=== PATIENT | female | born 2000 | race Caucasian/White ===

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

== ENCOUNTER 2019-05-28 09:42 | Emergency (ER) | payer MEDICAID ==
[2019-05-28] MEDS ORDERED: ONDANSETRON ODT 4 MG TABLET TL STA (10:14)
--- NOTE | 2019-05-28 11:27 | ED Physician Documentation ---
PD HPI NVD - Stated complaint Stated Complaint: VOMITING - Chief complaint Chief Complaint: Abd Pain - History obtained from History obtained from: Patient - History of Present Illness Timing - onset: Today Similar symptoms before: Has not had sx before - Additonal information Additional information: The patient is a 19-year-old female who presents with vomiting and diarrhea that started this morning. She denies abdominal pain, fever, or dysuria. She denies headache, sore throat, cough, or lightheadedness. Her [id number] daughter has also been vomiting this morning. Review of Systems Constitutional: denies: Fever Ears: denies: Tinnitus/ringing Nose: denies: Congestion Throat: denies: Sore throat Cardiac: denies: Chest pain / pressure Respiratory: denies: Dyspnea, Cough GI: reports: Vomiting, Diarrhea. 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 : None HEENT: None Psych: None Musculoskeletal: None - Past Surgical History Past Surgical History: No - Present Medications Home Medications: Ambulatory Orders Medication Instructions Recorded Confirmed Pnv95/Ferrous Fumarate/FA 1 tab ORAL DAILY 07/24/18 07/24/18 [ Tablet] Promethazine [Phenergan] 25 - 50 mg PO Q6H PRN #10 tab 05/28/19 - Allergies Allergies/Adverse Reactions: Allergies Allergy/AdvReac Type Severity Reaction Status Date / Time No Known Drug Allergies Allergy Verified 05/28/19 09:49 - Social History Does the pt smoke?: No Smoking Status: Never smoker Does the pt drink ETOH?: No Does the pt have substance abuse?: No - Immunizations Immunizations are current?: Yes PD ED PE NORMAL - Vitals Vital signs reviewed: Yes (Initially tachycardic.) - General General: Alert and oriented X 3, Well developed/nourished - HEENT HEENT: Atraumatic, EOMI, Moist mucous membranes, Pharynx benign - Neck Neck: Supple, no meningeal sign, No adenopathy - Cardiac Cardiac: No murmur, Other (Rapid rate, regular rhythm.) - Respiratory Respiratory: No respiratory distress, Clear bilaterally - Abdomen Abdomen: Soft, Non tender - Back Back: No CVA TTP - Derm Derm: No rash - Extremities Extremities: No edema, No calf tenderness / cord - Neuro Neuro: Alert and oriented X 3, No motor deficit, Normal speech Results - Vitals Vitals: Oxygen O2 Source Room air PD MEDICAL DECISION MAKING - ED course Complexity details: re-evaluated patient, considered differential, d/w patient ED course: The patient's presentation is most consistent with gastroenteritis, with symptoms of vomiting and diarrhea. Her abdominal exam is benign. Treatment in the emergency department included administration of Zofran 4 mg orally. She had no vomiting while in the emergency department, and demonstrated ability to drink fluids without recurrent nausea. She is being discharged with a prescription for Phenergan. I discussed with her the expected course of illness, symptomatic treatment and outpatient follow-up, as well as potentially worrisome signs or symptoms that should prompt reevaluation in the emergency department. Departure - Departure Disposition: 01 Home, Self Care Clinical Impression: Gastroenteritis Vomiting Qualifiers: Vomiting type: unspecified Vomiting Intractability: non-intractable Nausea presence: with nausea Qualified Code(s): R11.2 - Nausea with vomiting, unspecified Condition: Stable Instructions: ED Nausea Vomiting Prescriptions: Promethazine [Phenergan] 25 - 50 mg PO Q6H PRN #10 tab PRN Reason: Nausea / Vomiting Comments: Drink plenty of fluids. You can use Phenergan as prescribed if needed for nausea. Follow-up with your primary physician within 1 to 2 weeks if not completely resolved. Return to the emergency department if you develop increasing abdominal pain, persistent vomiting, or otherwise worsening symptoms. Discharge Date/Time: 05/28/19 11:39
[2019-05-28 11:39] VITALS: BP 109/59
== END 2019-05-28 11:39 | disposition home or self-care (01) ==
LOC: ED 09:42
DX: K52.9 Noninfective gastroenteritis and colitis, unspecified (principal)
CPT/HCPCS: 99282; 99283; Q0162

== ENCOUNTER 2022-11-01 13:17 | Outpatient (CLI) | payer MEDICAID ==
[2022-11-01 13:34] LABS: BASOPHILS % (AUTO) 0.3 %; EOSINOPHILS % (AUTO) 0.4 %; HCT - HEMATOCRIT 38.2 % (37.0-47.0); HGB - HEMOGLOBIN 13.2 g/dL (12.0-16.0); LYMPHOCYTES % (AUTO) 30.4 %; MEAN CORPUSCULAR HEMOGLOBIN 29.9 pg (27.0-31.0); MEAN CORPUSCULAR HGB CONC 34.6 g/dL (32.0-36.0); MEAN CORPUSCULAR VOLUME 86.6 fL (81.0-99.0); MEAN PLATELET VOLUME 11.1 fL (7.9-10.8); MONOCYTES # (AUTO) 0.5 10^3/uL (0.0-1.0); MONOCYTES % (AUTO) 6.7 %; NEUTROPHILS # (AUTO) 4.1 10^3/uL (1.5-6.6); NEUTROPHILS % (AUTO) 62.1 %; PLT - PLATELET COUNT 190 10^3/uL (130-450); RED BLOOD COUNT 4.41 10^6/uL (4.20-5.40); RED CELL DISTRIBUTION WIDTH 12.1 % (12.0-15.0); WHITE BLOOD COUNT 6.7 x10^3/uL (4.8-10.8)
[2022-11-01 13:46] LABS: ALBUMIN 3.9 g/dL (3.2-5.5); ALBUMIN/GLOBULIN RATIO 0.9 (1.0-2.2); BILIRUBIN,TOTAL 0.9 mg/dL (0.2-1.0); CALCIUM 9.7 mg/dL (8.5-10.3); CREATININE 0.5 mg/dL (0.4-1.0); POTASSIUM 3.6 mmol/L (3.5-5.0); TOTAL PROTEIN 8.1 g/dL (6.7-8.2)
[2022-11-01 21:50] LABS: ESTIMATED AVERAGE GLUCOSE 100 mg/dL (70-100); HEMOGLOBIN A1c% 5.1 % (4.27-6.07)
[2022-11-02 04:08] LABS: HBsAG SCREEN Negative (Negative)
[2022-11-02 05:10] LABS: HCV AB <0.1 s/co ratio (0.0-0.9); HIV SCREEN 4TH GENERATION Non Reactive (Non Reactive); RPR Non Reactive (Non Reactive)
[2022-11-02 08:09] LABS: VARICELLA-ZOSTER AB IGG 2108 index (Immune >165)
== END 2022-11-01 13:18 | disposition home or self-care (01) ==
LOC: LAB 13:17
PROVIDERS: ATTEND Nurse Practitioner Obstetrics & Gynecology
DX: Z36.89 Encounter for other specified antenatal screening (principal)
CPT/HCPCS: 36415; 80053; 83036; 85025; 86592; 86762; 86787; 86803; 86850; 86900; 86901; 87340; 87389

== ENCOUNTER 2022-11-12 12:59 | Emergency (ER) | payer MEDICAID ==
[2022-11-12 13:30] LABS: BASOPHILS % (AUTO) 0.2 %; EOSINOPHILS % (AUTO) 0.2 %; HGB - HEMOGLOBIN 13.4 g/dL (12.0-16.0); LYMPHOCYTES # (AUTO) 0.7 10^3/uL (1.5-3.5); LYMPHOCYTES % (AUTO) 11.2 %; MEAN CORPUSCULAR HEMOGLOBIN 29.5 pg (27.0-31.0); MEAN CORPUSCULAR HGB CONC 34.4 g/dL (32.0-36.0); MEAN CORPUSCULAR VOLUME 85.9 fL (81.0-99.0); MEAN PLATELET VOLUME 10.5 fL (7.9-10.8); MONOCYTES # (AUTO) 0.3 10^3/uL (0.0-1.0); MONOCYTES % (AUTO) 5.5 %; NEUTROPHILS # (AUTO) 4.9 10^3/uL (1.5-6.6); NEUTROPHILS % (AUTO) 82.7 %; PLT - PLATELET COUNT 169 10^3/uL (130-450); RED BLOOD COUNT 4.54 10^6/uL (4.20-5.40); RED CELL DISTRIBUTION WIDTH 12.3 % (12.0-15.0)
[2022-11-12 13:41] LABS: ALBUMIN 3.8 g/dL (3.2-5.5); ALBUMIN/GLOBULIN RATIO 0.9 (1.0-2.2); BILIRUBIN,TOTAL 1.2 mg/dL (0.2-1.0); CALCIUM 9.4 mg/dL (8.5-10.3); CREATININE 0.5 mg/dL (0.4-1.0); POTASSIUM 3.6 mmol/L (3.5-5.0); TOTAL PROTEIN 8.2 g/dL (6.7-8.2)
[2022-11-12] MEDS ORDERED: SODIUM CHLORIDE 0.9% 2,000 ML IV STA (14:44)
[2022-11-12] MEDS ORDERED: ONDANSETRON 4 MG/2 ML VIAL IVP STA (14:59)
[2022-11-12 15:08] LABS: GLUCOSE, URINE (UA) NEGATIVE (NEGATIVE); KETONES,URINE (UA) >=80 mg/dL (NEGATIVE); LEUKOCYTE ESTERASE, URINE TRACE (NEGATIVE); NITRITE,URINE POSITIVE (NEGATIVE); OCCULT BLOOD,URINE NEGATIVE (NEGATIVE); PROTEIN,URINE 30 mg/dL (NEGATIVE); UROBILINOGEN,URINE 1 (NORMAL) E.U./dL (NORMAL)
--- NOTE | 2022-11-12 15:11 | ED Physician Documentation ---
History of Present Illness - Stated complaint Stated Complaint: N/V/D - Chief complaint Chief Complaint: Abd Pain - History obtained from History obtained from: Patient - History of Present Illness Timing: Yesterday Pain level max: 3 Pain level now: 2 - Additonal information Additional information: 22-year-old female 2 para 1, presents the emergency department with nausea, vomiting, diarrhea x24 hours. Worse with eating and drinking. Nothing makes it better. No fevers. No chills. No recent travel. No recent antibiotics. No recent camping. She states that she had slight vaginal spotting about 5 days ago but none currently. Review of Systems Constitutional: denies: Fever, Chills Respiratory: denies: Cough GI: reports: Abdominal Pain (Diffuse, crampy), Nausea, Vomiting, Diarrhea. 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 : None HEENT: None Psych: None Musculoskeletal: None - Past Surgical History Past Surgical History: No - Present Medications Home Medications: Ambulatory Orders Medication Instructions Recorded Confirmed Pnv No.95/Ferrous Fum/Folic AC 1 tab ORAL DAILY 07/24/18 11/12/22 [ Tablet] Nitrofurantoin [Macrobid] 100 mg PO BID #10 cap 11/12/22 Ondansetron Odt [Zofran] 4 mg TL Q6H PRN #10 tablet 11/12/22 - Allergies Allergies/Adverse Reactions: Allergies Allergy/AdvReac Type Severity Reaction Status Date / Time No Known Drug Allergies Allergy Verified 11/12/22 13:12 - Social History Does the pt smoke?: No Smoking Status: Never smoker Does the pt drink ETOH?: No Does the pt have substance abuse?: No - Immunizations Immunizations are current?: Yes PD ED PE NORMAL - Vitals Vital signs reviewed: Yes - General General: Alert and oriented X 3, No acute distress, Well developed/nourished - HEENT HEENT: PERRL, Moist mucous membranes - Neck Neck: Supple, no meningeal sign - Cardiac Cardiac: RRR, Strong equal pulses - Respiratory Respiratory: No respiratory distress, Clear bilaterally - Abdomen Abdomen: Soft, Non tender, Non distended - Back Back: No CVA TTP, No spinal TTP - Derm Derm: Warm and dry, No rash - Extremities Extremities: No edema, No calf tenderness / cord - Neuro Neuro: Alert and oriented X 3 - Psych Psych: Normal mood, Normal affect Results - Vitals Vitals: Vital Signs - 24 hr 11/12/22 11/12/22 13:07 16:44 Temperature 36.7 C Heart Rate 119 H 87 Respiratory 16 14 Rate Blood Pressure 118/76 105/63 O2 Saturation 98 100 Oxygen O2 Source Room air - Labs Labs: Laboratory Tests 11/12/22 11/12/22 11/12/22 13:24 13:24 13:29 WBC 6.0 RBC 4.54 Hgb 13.4 Hct 39.0 MCV 85.9 MCH 29.5 MCHC 34.4 RDW 12.3 Plt Count 169 MPV 10.5 Neut # (Auto) 4.9 Lymph # (Auto) 0.7 L Dade # (Auto) 0.3 Eos # (Auto) 0.0 Baso # (Auto) 0.0 Absolute Nucleated RBC 0.00 Nucleated RBC % 0.0 Sodium 134 L Potassium 3.6 Chloride 101 Carbon Dioxide 21 Anion Gap 12.0 BUN 6 Creatinine 0.5 Estimated GFR (MDRD) 153 Glucose 104 H Calcium 9.4 Total Bilirubin 1.2 H AST 35 ALT 47 Alkaline Phosphatase 56 Total Protein 8.2 Albumin 3.8 Globulin 4.3 H Albumin/Globulin Ratio 0.9 L Lipase 30 Urine Color YELLOW Urine Clarity CLOUDY Urine pH 6.0 Ur Specific Warner >=1.030 H Urine Protein 30 H Urine Glucose (UA) NEGATIVE Urine Ketones >=80 H Urine Occult Blood NEGATIVE Urine Nitrite POSITIVE H Urine Bilirubin SMALL H Urine Urobilinogen 1 (NORMAL) Ur Leukocyte Esterase TRACE H Urine RBC 0-5 Urine WBC 6-10 H Ur Squamous Epith Cells NONE SEEN Urine Bacteria Moderate H Ur Microscopic Review INDICATED Urine Culture Comments INDICATED Urine HCG, Qual POSITIVE PD Medical Decision Making - ED course Complexity details: reviewed results, re-evaluated patient, considered differential, d/w patient, d/w family Reviewed Lab Results: A CBC was ordered and was unremarkable. Chemistry shows mild hyponatremia, but otherwise relatively unremarkable labs. Her urinalysis is consistent with a UTI. ED course: 22-year-old female with what appears to be a viral gastroenteritis complicated by . Feels much better after IV fluids and Zofran. Tolerating p.o. without difficulty. She appears to have a UTI on laboratory testing. We will treat this with antibiotics. Patient is very well-appearing, nontoxic. Afebrile. Abdomen is soft, nontender nondistended. Bedside ultrasound reveals an intrauterine , heart rate of approximately 152 bpm. Images were shown to the patient. Patient will follow up with her OB for further care. Patient counseled regarding signs and symptoms for which I believe and urgent re-evaluation would be necessary. Patient with good understanding of and agreement to plan and is comfortable going home at this time This document was made in part using voice recognition software. While efforts are made to proofread this document, sound alike and grammatical errors may occur. Departure - Departure Disposition: 01 Home, Self Care Clinical Impression: Gastroenteritis UTI (urinary tract infection) Qualifiers: Urinary tract infection type: acute cystitis Hematuria presence: without hematuria Qualified Code(s): N30.00 - Acute cystitis without hematuria Qualifiers: Weeks of gestation: 12 weeks Qualified Code(s): Z3A.12 - 12 weeks gestation of Condition: Good Instructions: ED UTI Cystitis Female, ED Gastroenteritis Viral Follow-Up: Viri Marshall CNM, PHOTOGRAPHIC RESTORER [Primary Care Provider] - Within 1 week Prescriptions: Nitrofurantoin [Macrobid] 100 mg PO BID #10 cap Ondansetron Odt [Zofran] 4 mg TL Q6H PRN #10 tablet PRN Reason: Nausea / Vomiting Comments: Please follow-up with your doctor for further care. Please return if you worsen. Take all antibiotics until gone. Make sure you are drinking plenty of fluids. Your prescriptions were sent to [facility]. Discharge Date/Time: 11/12/22 16:58
[2022-11-12 15:18] LABS: BILIRUBIN,URINE SMALL (NEGATIVE); CLARITY,URINE CLOUDY (CLEAR); HCG UR QUAL POSITIVE; ICTOTEST,URINE POSITIVE; RBC,URINE 0-5 /HPF (0-5)
[2022-11-12 15:19] LABS: BACTERIA,URINE Moderate /HPF (None Seen); SQUAMOUS EPITHELIAL CELL,UR NONE SEEN (<= Few)
[2022-11-12] MEDS ORDERED: cefTRIAXone 1 GM VIAL IVP STA (16:03)
[2022-11-12 16:46] VITALS: BP 105/63
== END 2022-11-12 16:58 | disposition home or self-care (01) ==
LOC: ED 12:59
DX: O99.891 Other specified diseases and conditions complicating pregnancy (principal); N30.00 Acute cystitis without hematuria; O99.619 Diseases of the digestive system complicating pregnancy, unspecified trimester; K52.9 Noninfective gastroenteritis and colitis, unspecified; Z3A.00 Weeks of gestation of pregnancy not specified
CPT/HCPCS: 36415; 80053; 81001; 81003; 81025; 83690; 85025; 87086; 96361; 96374; 96375; 99283

== ENCOUNTER 2022-11-16 08:49 | Outpatient (CLI) | payer MEDICAID | END 2022-11-16 08:50 | disposition home or self-care (01) | LOC: LAB 08:49 | PROVIDERS: ATTEND Nurse Practitioner Obstetrics & Gynecology | DX: Z01.89 Encounter for other specified special examinations (principal) | CPT/HCPCS: 36415 ==

== ENCOUNTER 2023-01-08 09:07 | Emergency (ER) | payer MEDICAID ==
[2023-01-08 09:15] VITALS: BP 117/69
--- NOTE | 2023-01-08 09:41 | ED Physician Documentation ---
History of Present Illness - Stated complaint Stated Complaint: EAR/THROAT PX - Chief complaint Chief Complaint: Heent - Additonal information Additional information: Patient is 22-year-old female presenting to the emergency department with chief complaint of sore throat. 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 Symptoms began last Saturday. She has been having sinus congestion with runny nose, sore throat, painful swallowing and a feeling of fullness behind both of her ears. She denies fever, known sick contacts, cough, chest pain, shortness of breath, abdominal pain, vaginal bleeding, discharge or dysuria. Does report that she had frequent episodes of strep pharyngitis in childhood. 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 : None HEENT: None Psych: None Musculoskeletal: None - Past Surgical History Past Surgical History: No - Present Medications Home Medications: Ambulatory Orders Medication Instructions Recorded Confirmed Pnv No.95/Ferrous Fum/Folic AC 1 tab ORAL DAILY 07/24/18 11/12/22 [ Tablet] Nitrofurantoin [Macrobid] 100 mg PO BID #10 cap 11/12/22 Ondansetron Odt [Zofran] 4 mg TL Q6H PRN #10 tablet 11/12/22 Acetaminophen [Tylenol] 650 mg PO Q6H PRN #30 tab 01/08/23 Oxymetazoline HCl [Afrin] 15 ml NS Q4HR #15 each 01/08/23 Pseudoephedrine HCl 60 mg PO BID #30 tablet 01/08/23 - Allergies Allergies/Adverse Reactions: Allergies Allergy/AdvReac Type Severity Reaction Status Date / Time No Known Drug Allergies Allergy Verified 01/08/23 09:15 - Social History Does the pt smoke?: No Smoking Status: Never smoker Does the pt drink ETOH?: No Does the pt have substance abuse?: No - Immunizations Immunizations are current?: Yes PD ED PE NORMAL - Vitals Vital signs reviewed: Yes - General General: Alert and oriented X 3, No acute distress, Well developed/nourished - HEENT HEENT: Atraumatic, PERRL, EOMI, Ears normal, Moist mucous membranes, Pharynx benign - Neck Neck: Supple, no meningeal sign, No bony TTP, No adenopathy, Thyroid normal, No JVD, No bruit - Cardiac Cardiac: RRR, No murmur, No gallop, No rub - Respiratory Respiratory: No respiratory distress, Clear bilaterally - Abdomen Abdomen: Normal bowel sounds - Female Female : Deferred - Rectal Rectal: Deferred - Derm Derm: Normal color - Extremities Extremities: No deformity - Neuro Neuro: Alert and oriented X 3, billet examiner 2-12 intact, No motor deficit, No sensory deficit, Normal speech Results - Vitals Vitals: Vital Signs - 24 hr 01/08/23 09:12 Temperature 36.8 C Heart Rate 97 Respiratory 16 Rate Blood Pressure 117/69 O2 Saturation 100 Oxygen O2 Source Room air - Labs Labs: Laboratory Tests 01/08/23 09:16 Group A Strep Rapid Negative PD Medical Decision Making - ED course Complexity details: reviewed results, d/w patient Reviewed Lab Results: Strep pharyngitis swab ordered and is negative. Social Determinants of Health: None known ED course: Patient is 22-year-old female presenting to the emergency department with sore throat and upper airway congestion. Afebrile, hemodynamically stable. HEENT exam demonstrated some sinus congestion but no uvular deviation, sublingual elevation, tracheal immobility or other signs of a serious bacterial deep space neck infection. There is no mastoid tenderness on exam. Did obtain a strep pharyngitis swab which was negative. Patient did report that she is 20 weeks and heart tones were considered however patient does not have any abdominal or urogenital symptoms that would be of imminent concern for related complications.Her blood pressure was within a normal range while in the emergency department. She was given single dose Decadron to help with her pharyngitis. She reported that the only thing she has been taking at home has been children's Tylenol. I will discharge with some medications for symptomatic management. Clear return precautions given. Departure - Departure Disposition: Home, Self Care Clinical Impression: URI (upper respiratory infection) Qualifiers: URI type: unspecified viral URI Qualified Code(s): J06.9 - Acute upper respiratory infection, unspecified Instructions: ED Pharyngitis Viral Prescriptions: Oxymetazoline HCl [Afrin] 15 ml NS Q4HR #15 each Pseudoephedrine HCl 60 mg PO BID #30 tablet Acetaminophen [Tylenol] 650 mg PO Q6H PRN #30 tab PRN Reason: Pain Comments: Thank you for allowing us to care for you today at [facility]. Your strep pharyngitis screening swab was negative. I have sent some medications to your preferred pharmacy, [facility] in [place]. These include oral and nasal decongestants as well as extra strength Tylenol. I recommend getting plenty of rest and drinking plenty of liquids. In particular warm liquids can be very helpful in soothing a sore throat. Other things that can be helpful include salt water gargles and the use of humidified air. Please make a follow-up appoint with your primary care doctor. Please keep your coming up appointment with your BOILER HOUSE OPERATOR. If it anytime you develop any new or worsening symptoms please not hesitate to return.
[2023-01-08 10:12] LABS: RAPID STREP SCREEN Negative (Negative)
[2023-01-08] MEDS: DEXAMETHASONE 10 MG/ML VIAL PO STA (10:12)
[2023-01-08] MEDS: CHERRY SYRUP 10 ML UDC PO ONE (10:12)
== END 2023-01-08 11:24 | disposition home or self-care (01) ==
LOC: ED 09:07
DX: O99.512 Diseases of the respiratory system complicating pregnancy, second trimester (principal); J06.9 Acute upper respiratory infection, unspecified; Z3A.20 20 weeks gestation of pregnancy
CPT/HCPCS: 87070; 87430; 99283; A9270

== ENCOUNTER 2023-01-09 06:49 | Outpatient (CLI) | payer MEDICAID ==
--- NOTE | 2023-01-09 11:04 | Ultrasound Report ---
PROCEDURE: OB Detailed Eval INDICATIONS: SUPERVISION OF OUTSIDE/PRIOR DATING DATA: Last menstrual period (LMP): 08/20/2022. LMP-based estimated date of delivery (JOSE): 05/27/2023. First dating scan (date and location): 11/06/2022. Estimated date of delivery (JOSE) from first dating scan: 06/01/2023. The below data below was generated using the sonographic JOSE of 06/01/2023 TECHNIQUE: Real-time scanning was performed of the fetus, with image documentation and biometric measurements. Endovaginal scanning: Not performed COMPARISON: None. FINDINGS: General: A single living intrauterine gestation is present. Presentation: Cephalic Placenta: Placental position is anterior, without previa. Amniotic fluid index: 13.3 cm, 18th percentile for gestational age. heart rate: 160 beats per minute. Maternal cervical canal: 3.9 cm long; normal length is 2.5 cm or more. biometrics: Biparietal diameter: 4.7 cm, 20 weeks 2 days Head circumference: 17.6 cm, 20 weeks 1 day Abdominal circumference: 15.5 cm, 20 weeks 4 days Femur length: 3.4 cm, 20 weeks 4 days Estimated gestational age from initial scan: 19 weeks 4 days Composite gestational age from present scan: 20 weeks 3 days Estimated weight and percentile: 361 g, 92nd percentile Measurement variability in biometric dating: +/- 10 days from 12-20 weeks gestation, +/- 2 weeks from 20-30 weeks gestation, +/- 3 weeks at 30 weeks gestation or later. Anatomic survey: Neuro: Ventricles are normal at less than 10 mm. Cisterna magna is normal at 3-11 mm. Cerebellum i s normal in size and morphology. Nuchal skin fold: Normal at less than 6 mm between 14 and 20 weeks gestational age. Face: Nose and lips, facial profile are normal. Spine: No evidence for spina bifida. Heart: 4-chambered heart is present. Outflow tracts not well seen. Diaphragm: Diaphragm is intact. Stomach: Left-sided stomach is present. Kidneys: Not well visualized. Cord: 3 vessel cord has orthotopic insertion. Bladder: Normal in size. Extremities: All 4 extremities are visualized. IMPRESSION: 1.Single living intrauterine at 20 weeks 3 days, JOSE of 06/01/2023. 2.Estimated weight is 361 g, 92nd percentile. 3.Kidneys and cardiac outflow tracts not well visualized. Additional follow-up is recommended. Reviewed by: Waqas Glover on 01/09/2023 11:03 AM PDT Approved by: Waqas Glover on 01/09/2023 11:03 AM PDT Station ID: [id number]
== END 2023-01-09 06:50 | disposition home or self-care (01) ==
LOC: DI 06:49
PROVIDERS: ATTEND Nurse Practitioner Obstetrics & Gynecology
DX: Z34.02 Encounter for supervision of normal first pregnancy, second trimester (principal); Z36.89 Encounter for other specified antenatal screening

== ENCOUNTER 2023-02-01 20:45 | Outpatient (CLI) | payer MEDICAID ==
--- NOTE | 2023-02-03 09:28 | Ultrasound Report ---
PROCEDURE: OB F/U or Repeat INDICATIONS: SUPERVISION OF OUTSIDE/PRIOR DATING DATA: Last menstrual period (LMP): 08/20/2022. LMP-based estimated date of delivery (JOSE): 05/27/2023. First dating scan (date and location): 11/06/2022. Estimated date of delivery (JOSE) from first dating scan: 06/01/2023. The below data below was generated using the JOSE of TECHNIQUE: Real-time scanning was performed of the fetus, with image documentation and biometric measurements. Endovaginal scanning: Not performed COMPARISON: 01/09/2023 FINDINGS: General: A single living intrauterine gestation is present. Presentation: Breech Placenta: Placental position is anterior, without previa. Amniotic fluid index: 17.8 cm heart rate: 137 beats per minute. Maternal cervical canal: On today's exam. Ovaries appear within normal limits. biometrics: Not performed on today's exam. Anatomic survey: Kidneys as well as the outflow tract were evaluated. There is normal appearance of the kidneys withou t evidence of hydronephrosis. The left ventricular outflow tract and four-chamber views appear within normal limits. The right ventricular outflow tract is again limited in evaluation. Other: Not applicable. IMPRESSION: Kidneys and left ventricular outflow tract. Within normal limits. The right ventricular outflow tract is again limited in evaluation. Fetus in breech position on today's exam. MARGO measures 17.8 cm. Reviewed by: Kenneth Larson DO on 02/03/2023 8:26 AM LEXI Approved by: Kenneth Larson DO on 02/03/2023 8:26 AM LEXI Station ID: [id number]
== END 2023-02-01 20:46 | disposition home or self-care (01) ==
LOC: DI 20:45
PROVIDERS: ATTEND Nurse Practitioner Obstetrics & Gynecology
DX: O32.1XX0 Maternal care for breech presentation, not applicable or unspecified (principal); Z36.89 Encounter for other specified antenatal screening; Z3A.00 Weeks of gestation of pregnancy not specified

== ENCOUNTER 2023-02-25 11:44 | Outpatient (CLI) | payer MEDICAID ==
[2023-02-25 13:13] LABS: HCT - HEMATOCRIT 32.7 % (37.0-47.0); HGB - HEMOGLOBIN 11.1 g/dL (12.0-16.0); MEAN CORPUSCULAR HEMOGLOBIN 30.8 pg (27.0-31.0); MEAN CORPUSCULAR HGB CONC 33.9 g/dL (32.0-36.0); MEAN CORPUSCULAR VOLUME 90.8 fL (81.0-99.0); RED BLOOD COUNT 3.6 10^6/uL (4.20-5.40); RED CELL DISTRIBUTION WIDTH 13.2 % (12.0-15.0); WHITE BLOOD COUNT 6.9 x10^3/uL (4.8-10.8)
== END 2023-02-25 11:45 | disposition home or self-care (01) ==
LOC: LAB 11:44
PROVIDERS: ATTEND Nurse Practitioner Obstetrics & Gynecology
DX: Z36.9 Encounter for antenatal screening, unspecified (principal)
CPT/HCPCS: 36415; 82950; 85027

== ENCOUNTER 2023-04-03 22:01 | Outpatient (CLI) | payer MEDICAID ==
--- NOTE | 2023-04-04 16:57 | Ultrasound Report ---
PROCEDURE: OB F/U or Repeat INDICATIONS: UTERINE SIZE DATE DISCREPENCY OUTSIDE/PRIOR DATING DATA: Last menstrual period (LMP): 08/20/2022. LMP-based estimated date of delivery (JOSE): 05/27/2023. First dating scan (date and location): 11/06/2022 (from provider). Estimated date of delivery (JOSE) from first dating scan: 06/01/2023. The below data below was generated using the working JOSE of 06/01/2023. TECHNIQUE: Real-time scanning was performed of the fetus, with image documentation and biometric measurements. COMPARISON: OB ultrasound, 01/09/2023 and 02/01/2023. FINDINGS: General: A single living intrauterine gestation is present. Presentation: Vertex Placenta: Placental position is anterior fundal, without previa. Amniotic fluid index: 12.0 cm; largest pocket 4.8 cm. heart rate: 143 beats per minute. Maternal cervical canal: Closed measuring 4.0 cm long; normal length is 2.5 cm or more. biometrics: Biparietal diameter: 34 weeks 2 days Head circumference: 35 weeks 3 days Abdominal circumference: 33 weeks 0 day Femur length: 34 weeks 1 day Estimated gestational age from initial scan: 31 weeks 2 days. Composite gestational age from present scan: 34 weeks 2 days Estimated weight and percentile: 2254 g; 97.4% for gestational age. Measurement variability in biometric dating: +/- 10 days from 12-20 weeks gestation, +/- 2 weeks from 20-30 weeks gestation, +/- 3 weeks at 30 weeks gestation or more. Other: Limited examination due to patient's body habitus. IMPRESSION: 1. A single living IUP is redemonstrated. 2. Size greater than dates. 3. The estimated weight is 97.4% for gestational age, concerning for macrosomia. Reviewed by: Andrzej Mejia MD on 04/04/2023 4:56 PM PDT Approved by: Andrzej Mejia MD on 04/04/2023 4:56 PM PDT Station ID: [id number]
== END 2023-04-03 22:02 | disposition home or self-care (01) ==
LOC: DI 22:01
PROVIDERS: ATTEND Nurse Practitioner Obstetrics & Gynecology
DX: O99.213 Obesity complicating pregnancy, third trimester (principal); O26.843 Uterine size-date discrepancy, third trimester; Z3A.34 34 weeks gestation of pregnancy

== ENCOUNTER 2023-05-23 09:20 | Inpatient (IN) | payer MEDICAID ==
[2023-05-23] MEDS ORDERED: fentaNYL 100 MCG/2 ML VIAL IVP PRN (10:04)
[2023-05-23] MEDS ORDERED: TRANEXAMIC ACID IN NACL 1,000 MG/100 ML BAG IV PRN (10:04)
[2023-05-23] MEDS ORDERED: ONDANSETRON 4 MG/2 ML VIAL IVP PRN (10:04)
[2023-05-23] MEDS ORDERED: OXYTOCIN 10 UNIT/ML VIAL IM PRN (10:04)
[2023-05-23] MEDS ORDERED: lidocaine 1% 20 ML MDV ID PRN (10:04)
[2023-05-23] MEDS ORDERED: OXYTOCIN/SODIUM CHLORIDE 500 ML IV PRN (10:04)
[2023-05-23] MEDS ORDERED: CARBOPROST TROMETHAMINE 250 MCG/ML AMP IM PRN (10:04)
[2023-05-23] MEDS ORDERED: ACETAMINOPHEN 325 MG TABLET PO PRN (10:04)
[2023-05-23] MEDS ORDERED: METHYLERGONOVINE 0.2 MG/ML VIAL IM PRN (10:04)
[2023-05-23] MEDS ORDERED: SODIUM CHLORIDE FLUSH 0.9% 10 ML SYRINGE IVP PRN (10:04)
[2023-05-23] MEDS ORDERED: miSOPROStoL 200 MCG TABLET BC PRN (10:04)
--- NOTE | 2023-05-23 10:07 | HISTORY & PHYSICAL EXAMINATION ---
Admit History - Visit Reason Visit Reason: Other - : 2 Parity: 1 Premature: 0 Ectopic: 0 : 0 Care: positive: [facility] Risk/History: positive: None Complications This : positive: None Smoking Status: Never smoker - Mother's Labs Mother's Blood Type: positive: O Mother's RH: positive: Positive GBS: positive: Group B Step Negative Rubella Status: positive: Immune - HPI Diagnosis/Indication for NST: Other - NST Procedure NST Procedure Start Time 14:21 Stop Time 15:11 - Results and Plan Plan: NST reactive. FHR baseline 140s, moderate variability, + accels, no decels No contractions appreciated via tocometry Meds/Allgy - Home Medications Home Medications: Ambulatory Orders Medication Instructions Recorded Confirmed Pnv No.95/Ferrous Fum/Folic AC 1 tab ORAL DAILY 07/24/18 11/12/22 [ Tablet] Nitrofurantoin [Macrobid] 100 mg PO BID #10 cap 11/12/22 Ondansetron Odt [Zofran] 4 mg TL Q6H PRN #10 tablet 11/12/22 Acetaminophen [Tylenol] 650 mg PO Q6H PRN #30 tab 01/08/23 Oxymetazoline HCl [Afrin] 15 ml NS Q4HR #15 each 01/08/23 Pseudoephedrine HCl 60 mg PO BID #30 tablet 01/08/23 - Allergies Allergies/Adverse Reactions: Allergies Allergy/AdvReac Type Severity Reaction Status Date / Time No Known Drug Allergies Allergy Verified 01/08/23 09:15 Review of Systems - Constitutional Constitutional: denies: Fatigue, Fever, Chills, Malaise - Eyes Eyes: denies: Blurred vision, Spots in vision, Dipolpia - Cardiovascular Cariovascular: denies: Irregular heart rate, Palpitations, Chest pain, Edema - Respiratory Respiratory: denies: Cough, Wheezing, SOB at rest - Gastrointestinal Gastrointestinal: denies: Constipation, Diarrhea, Nausea, Vomiting - Genitourinary Genitourinary: denies: Dysuria - Integumentary Integumentary: denies: Rash, Pruritis - Neurological Neurological: denies: Headache Physical - Abdominal Exam Contraction Frequency (min/apart): none Uterine Resting Tone: positive: Soft - Monitoring Heart Rate Baseline: 140 Strip Review: positive: Category I - Presentation Presentation: positive: Vertex - Vaginal Exam Membranes: positive: Membranes intact Dilation (in cm): 1 Effacement (%): 50 Station: positive: -3 Cervical Position: positive: Posterior - Speculum Exam Speculum Exam Performed: positive: No Plan for Labor - Plan For Labor Plan for Labor: HPI: Gina is a 23yo @ 39.3wks gestation by LMP c/w 10.3wk U/S who presents to [facility] for pre-induction cervical ripening in anticipation for elective induction of labor. Upon arrival her cervix is 1/50/-3, posterior, medi um and vertex. FHR baseline 140s, moderate variability, + accels, no decels. There are no contractions appreciated via tocometry. She has been a patient of [facility] for the duration of her which has been complicated by her + chlamydia result at her initial visit. She and her partner were both treated per protocol and she had a negative test of cure following treatment as well as a negative test of cure at 36 weeks gestation. She does have an elevated BMI of 43 however her pre- BMI was 46. She has lost 17lbs this secondary to change in her lifestyle in the form of food choices and activity. She is supported by her partner Gunner today. 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 SAB x0. , No hx of abnormals. Medical Hx: obesity Surgical Hx: none Family Hx: no significant Meds: PNV Allergies: None know Social: Single, lives with Gunner (his first baby). 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 No tobacco, ETOH or recreational drug use currently. Former recreational smoker. Caffeine intake -minimal. course: Initial U/S @ 10.3wks gestation c/w LMP dating O positive, antibody negative Rubella immune, varicella immune Chlamydia - POSITIVE 10/17/2022 Test of cure Chlamydia - NEGATIVE 12/05/2022 RPR non-reactive, Hep B neg HIV neg, Hep C neg Genetic screening - negative FAS WNL with the exception of poor visualization kidneys and cardiac outflow tracts. Anterior placenta, no previa. Size c/w dates (EFW 92%tile). 3VC. F/u ultrasound complete and WNL Glucola 119 Growth and MARGO at 32.2wks EFW 2254g (97.4%tile) GBS Negative Chlamydia - NEGATIVE 05/01/2023 Physical exam: Normocephalic, atraumatic Heart RRR w/o M/G/R Lungs CTAB Abdomen gravid, soft, nontender FHR baseline 140s, moderate variability, + accels, no decels No contractions appreciated via tocometry SVE 1/50/-3, posterior, moderate. Vertex. Cervical ripening balloon placed with 80cc intrauterine and 80cc vaginal balloon. Pt tolerated placement well. EFW 3800g Bilateral LE's no edema Mood is good Assessment: 23yo @ 39.3wks gestation by LMP c/w 10.3wks gestation Obesity FHR Category I GBS negative Plan: Place in observation status for pre-induction cervical ripening. Cervical ripening balloon in place x 2 hours followed by initiation of misoprostol x 1 dose of 50mcg BC. Plan initiation of pitocin 6 hours after placement of cervical ripening balloon. Continuous monitoring. Encouraged ambulation and position changes. Jacuzzi PRN. Nitrous oxide PRN. Epidural per maternal request. Anticipate .
[2023-05-23 10:39] LABS: BASOPHILS % (AUTO) 0.2 %; EOSINOPHILS % (AUTO) 0.3 %; HCT - HEMATOCRIT 33.6 % (37.0-47.0); LYMPHOCYTES % (AUTO) 31.7 %; MEAN CORPUSCULAR HEMOGLOBIN 28.9 pg (27.0-31.0); MEAN CORPUSCULAR HGB CONC 32.7 g/dL (32.0-36.0); MEAN CORPUSCULAR VOLUME 88.2 fL (81.0-99.0); MEAN PLATELET VOLUME 11.6 fL (7.9-10.8); MONOCYTES # (AUTO) 0.4 10^3/uL (0.0-1.0); MONOCYTES % (AUTO) 6.8 %; NEUTROPHILS # (AUTO) 3.9 10^3/uL (1.5-6.6); NEUTROPHILS % (AUTO) 60.7 %; PLT - PLATELET COUNT 168 10^3/uL (130-450); RED BLOOD COUNT 3.81 10^6/uL (4.20-5.40); WHITE BLOOD COUNT 6.3 x10^3/uL (4.8-10.8)
[2023-05-23] MEDS ORDERED: miSOPROStoL 100 MCG TABLET BC SCH (12:00)
[2023-05-23] MEDS ORDERED: miSOPROStoL 100 MCG TABLET BC ONE (13:00)
[2023-05-23] MEDS: LACTATED RINGERS 1,000 ML IV SCH ×2 (13:12→18:29)
[2023-05-23] MEDS ORDERED: SODIUM CHLORIDE FLUSH 0.9% 10 ML SYRINGE IVP SCH (17:00)
[2023-05-23] MEDS ORDERED: OXYTOCIN/SODIUM CHLORIDE 500 ML IV SCH (19:00)
[2023-05-24] MEDS ORDERED: OXYTOCIN 10 UNIT/ML VIAL IM PRN (01:31)
[2023-05-24] MEDS ORDERED: SODIUM CHLORIDE FLUSH 0.9% 10 ML SYRINGE IVP PRN (01:31)
[2023-05-24] MEDS ORDERED: OXYTOCIN/SODIUM CHLORIDE 500 ML IV PRN (01:31)
[2023-05-24] MEDS ORDERED: CARBOPROST TROMETHAMINE 250 MCG/ML AMP IM PRN (01:32)
[2023-05-24] MEDS ORDERED: miSOPROStoL 200 MCG TABLET BC PRN (01:33)
[2023-05-24] MEDS ORDERED: METHYLERGONOVINE 0.2 MG/ML VIAL IM PRN (01:33)
[2023-05-24] MEDS ORDERED: TRANEXAMIC ACID IN NACL 1,000 MG/100 ML BAG IV PRN (01:33)
[2023-05-24] MEDS ORDERED: fentaNYL 100 MCG/2 ML VIAL IVP PRN (01:34)
[2023-05-24] MEDS ORDERED: lidocaine 1% 20 ML MDV ID PRN (01:34)
[2023-05-24] MEDS ORDERED: ONDANSETRON 4 MG/2 ML VIAL IVP PRN (01:34)
[2023-05-24] MEDS ORDERED: ROPIVACAINE 0.2% 200 MG/100 ML BAG EP ONE (01:42)
[2023-05-24] MEDS: LACTATED RINGERS 1,000 ML IV SCH ×2 (01:59→05:08)
[2023-05-24] MEDS ORDERED: OXYTOCIN/SODIUM CHLORIDE 500 ML IV SCH (02:00)
[2023-05-24] MEDS ORDERED: ROPIVACAINE 0.2% 200 MG/100 ML BAG EP PRN (02:14)
[2023-05-24] MEDS ORDERED: ePHEDrine 50 MG/ML VIAL IVP PRN (02:14)
[2023-05-24] MEDS ORDERED: NALOXONE 0.4 MG/ML VIAL IVP PRN (02:14)
--- NOTE | 2023-05-24 02:14 | ANESTHESIA ---
Pre-Anesthesia VS, & Labs - Diagnosis active labor - Procedure vaginal delivery Vital Signs: Temp Pulse Resp BP Pulse Ox O2 Flow Rate 36.9 C 87 16 127/85 H 05/23/23 09:31 05/23/23 09:31 05/23/23 09:31 05/23/23 09:31 Height: 5 ft 4 in Weight (kg): 113.398 kg Body Mass Index: 42.9 BMI Classification: Morbidly Obese - NPO Last Fluid Intake: clear liquids - Is Patient ?: Yes - Lab Results Current Lab Results: Laboratory Tests 05/23/23 10:31: Blood Type O POSITIVE, Antibody Screen NEGATIVE 05/23/23 10:31: WBC 6.3, RBC 3.81 L, Hgb 11.0 L, Hct 33.6 L, MCV 88.2, MCH 28.9, MCHC 32.7, RDW 13.0, Plt Count 168, MPV 11.6 H, Neut # (Auto) 3.9, Lymph # (Auto) 2.0, [place] # (Auto) 0.4, Eos # (Auto) 0.0, Baso # (Auto) 0.0, Absolute Nucleated RBC 0.00, Nucleated RBC % 0.0 Lab results reviewed: Yes Fish Bones: 05/23/23 10:31 Home Medications and Allergies Active Medications Acetaminophen (Acetaminophen 325 Mg Tablet) 650 mg PO Q6H PRN PRN Reason: Mild Pain or Fever>38C(100.4F) Carboprost Tromethamine (Carboprost Tromethamine 250 Mcg/Ml Amp) 250 mcg IM Q15M PRN PRN Reason: Step 4: Hemorrhage protocol Fentanyl (Fentanyl 100 Mcg/2 Ml Vial) 50 mcg IVP Q1H PRN PRN Reason: Severe Pain (Level 7-10) Oxytocin/Sodium Chloride (Pitocin/Sodium Chloride) 500 mls @ 999 mls/hr IV PRN PRN; Protocol PRN Reason: POST- HEMORR PREVENTION Tranexamic Acid (Tranexamic 1,000 Mg/100ml-Nacl) 1,000 mg in 100 mls @ 600 mls/hr IV .ONCE PRN PRN Reason: EBL >1200mL and within 3hr Lactated Ringer's (Lr) 1,000 mls @ 100 mls/hr IV .Q10H SHARMIN Last Admin: 05/24/23 01:59 Dose: 100 mls/hr Oxytocin/Sodium Chloride (Pitocin/Sodium Chloride) 500 mls @ 2 mls/hr IV TITR SHARMIN; Protocol Lidocaine HCl (Lidocaine 1% 20 Ml Mdv) 20 ml ID .ONCE PRN PRN Reason: PERINEAL REPAIR Methylergonovine Maleate (Methylergonovine 0.2 Mg/Ml Vial) 0.2 mg IM .ONCE PRN PRN Reason: Step 2: Hemorrhage protocol Misoprostol (Misoprostol 200 Mcg Tablet) 800 mcg BC .ONCE PRN PRN Reason: Step 3: Hemorrhage protocol Ondansetron HCl (Ondansetron 4 Mg/2 Ml Vial) 4 mg IVP Q4HR PRN PRN Reason: Nausea / Vomiting Oxytocin (Oxytocin 10 Unit/Ml Vial) 10 unit IM .ONCE PRN PRN Reason: Step one: If no IV access Sodium Chloride (Sodium Chloride Flush 0.9% 10 Ml Syringe) 10 ml IVP 0100,0900,1700 SHARMIN Sodium Chloride (Sodium Chloride Flush 0.9% 10 Ml Syringe) 10 ml IVP PRN PRN PRN Reason: NEEDED PER PROVIDER ORDERS Pnv No.95/Ferrous Fum/Folic AC [ Tablet] 1 tab ORAL DAILY 07/24/18 Allergies/Adverse Reactions: Allergies Allergy/AdvReac Type Severity Reaction Status Date / Time No Known Drug Allergies Allergy Verified 01/08/23 09:15 Anes History & Medical History - Anesthetic History Family history of Anesthesia Complications: Denies Family history of Malignant Hyperthermia: Denies - Medical History Cardiovascular: reports: None Pulmonary: reports: None Gastrointestinal: reports: None Urinary: reports: None Neuro: reports: None Musculoskeletal: reports: None Endocrine/Autoimmune: reports: None Smoking Status: Never smoker Psychosocial: reports: No issues indicated History of Cancer?: No - Obstetrical History : 2 Parity: 1 Events: reports: None Complications: reports: None Exam General: Alert, Oriented x3, Cooperative, No acute distress Dental: WNL Mouth Openin Fingerbreadth Neck Mobility: Normal Mallampati classification: III Thyromental Distance: 4-6 cm Mental/Cognitive Status: Alert/Oriented X3, Normal for patient Plan Anesthesia Type: Epidural Consent for Procedure(s) Verified and Reviewed: Yes Code Status: Attempt Resuscitation ASA classification: 2-Mild systemic disease Is this case an emergency?: No
[2023-05-24] MEDS ORDERED: diphenhydrAMINE INJ 50 MG/ML VIAL IVP SCH (05:00)
[2023-05-24] MEDS: SODIUM CHLORIDE FLUSH 0.9% 10 ML SYRINGE IVP SCH ×2 (05:12→18:45)
[2023-05-24] MEDS ORDERED: WITCH HAZEL/GLYCERIN 1 PAD TOP PRN (07:07)
[2023-05-24] MEDS ORDERED: HYDROCORTISONE 1% CREAM 28 GM TUBE PR PRN (07:07)
--- NOTE | 2023-05-24 07:07 | DELIVERY NOTE ---
Delivery Note - Labor Labor: positive: Induced by oxytocin - Infant Delivery Method Delivery Method: positive: Spontaneous vaginal delivery - Cervical Ripening Method Cervical Ripening Method: positive: Balloon device, Misoprostil - Presentation Presentation: positive: Vertex, THOMAS - left occiput anterior - Nuchal Cord Nuchal Cord: positive: None - Amniotic Fluid Description Amniotic Fluid Description: positive: Clear - Episiotomy Type Episiotomy Type: positive: None - Laceration Laceration: positive: None - Delivery Outcome Delivery Outcome: positive: Livebirth - [place] : positive: Placed in direct skin contact with mother, Bulb syringe, Stimulated, Warmed, [place] used [place] sex: positive: Male - Cord Cord: positive: 3 vessels - Placenta Placenta: positive: Intact, Spontaneous - Estimated Blood Loss Estimated Blood Loss (in cc): 250 - Post Delivery Events Post Delivery Events: positive: No post delivery events - Delivery Comments (Free Text/Narrative) Delivery Comments (Free Text/Narrative): Labor: This 23yo @ 39.4wks gestation by LMP c/w 10wk U/S who presents to [facility] for elective induction of labor secondary to BMI >40 and suspected macrosomia. Cervix was 1/50/-3, posterior and vertex with intact membranes. FHR pattern demonstrated a Category I pattern throughout labor. A cervical ripening balloon was placed and 1 dose of 25mcg BC misoprostol was given for effective pre-induction cervical ripening. SROM occurred at approximately 1240 and was noted to be a moderate amount of clear fluid. Pitocin was initiated for labor induction with a maximum infusion rate of 16mU/mL. Pt progressed to c/c/0 at 0610 with onset of active pushing at 0629. : Normal SVB of viable male infant on 05/24/2023 @ 0645. No nuchal cord. The was placed on maternal abdomen, stimulated, dried, and placed skin to skin. 's were 7/8 at 1 and 5 min respectively. Pitocin administered via IV for hemostasis. Cord blood was obtained. The umbilical cord was allowed to stop pulsating at which time it was doubly clamped by CNM and cut by FOB. 3VC. Fundal massage and gentle cord traction applied for active management of the third stage. Placenta delivered spontaneously and intact and 0650. EBL 250mL. Fourth stage: Uterine fundus firm and there is no excessive bleeding. The perineum, vagina, and cervix were inspected and found to be intact. initiated. Family bonding well. Both mother and baby were left in stable condition.
[2023-05-24] MEDS ORDERED: ACETAMINOPHEN 325 MG TABLET PO PRN (07:08)
[2023-05-24] MEDS: IBUPROFEN 800 MG TABLET PO SCH ×3 (07:31→18:49)
--- NOTE | 2023-05-24 07:38 | PROVIDER PROGRESS NOTE ---
Labor Progress Note - Uterine Monitoring Uterine Monitoring Mode: positive: IUPC Contraction Frequency (min/apart): occasional Contraction Intensity: positive: Mild Uterine Resting Tone: positive: Soft - Monitoring Monitor Mode: positive: External ultrasound Heart Rate Baseline: 150 Heart Rate Variability: positive: Moderate (6-25 bmp) Accelerations: positive: Present, 15x15 Decelerations: positive: None Strip Review: positive: Category I - Vaginal Exam Dilation (in cm): 6 Effacement (%): 80 Station: -3 Cervical Position: Posterior - Labor Progress Note Labor Progress Note/Additional Text: S: Patient coping well with her labor progress thus far. Secondary to her BMI it has been difficult to trace her uterine contractions and therefore the pitocin has remained at 2mU/mL. Her contractions palapte mild occasionally with soft resting tone and pt appreciates mild uterine cramping but felt more uncomfortable prior to expulsion of the cervical ripening balloon. Her mood is good and she is supported by her mom, sister, and partner Gunner. O: FHR baseline 140s, moderate variability, + accels, no decels Contractions palpate mild occasionally with soft resting tone SVE 6/80/-3, posterior and vertex. IUPC placed and pt tolerated placement well. A: 23yo @ 39.3wks gestation by LMP c/w 10.3wk U/S Obesity GBS neg FHR Category I P: Maintain IUPC for contraction monitoring so pitocin can be appropriately titrated. Continuous monitoring. Continue induction of labor with pitocin and titrate per protocol. Nitrous oxide PRN. Epidural per maternal request. Anticipate .
[2023-05-24] MEDS: ACETAMINOPHEN 325 MG TABLET PO PRN ×2 (12:48→18:48)
--- NOTE | 2023-05-24 14:38 | CONSULTATION NOTE ---
Consultation Report: The RN requested anesthesia to evaluate patient for prolonged right let heaviness/numbness post epidural removal at 7am. On exam at 1400 the patient had sensory changes of the femoral nerve area including inability to lift leg off bed and dull but no sharp sensation from upper thigh to just below knee. She stated it was better than an hour ago when she got up to the commode. She has full sensory and motor to rest of leg including sciatic areas, able to bridge buttock off bed, dorsiflex and plantarflex her foot against resistance. I called Meagan Marshall CNM and made her aware and my recommendation to re- evaluate in the morning and call us if still sensory changes still persist. Dr. Nicole Ye was on unit and I told her that the patient was having some prolonged numbness after epidural but I was not concerned at this time. I called Desi Tracy who placed the epidural and she stated placement was uneventful. I communicated to Nicole ALLEN and Norah Macias RN to have the nursing staff call anesthesia on-call if sensory changed not resolved completely by tomorrow am.
[2023-05-24] MEDS: DOCUSATE SODIUM 100 MG CAPSULE PO SCH ×2 (15:01→21:11)
[2023-05-25] MEDS: IBUPROFEN 800 MG TABLET PO SCH ×2 (00:38→09:00)
[2023-05-25] MEDS: ACETAMINOPHEN 325 MG TABLET PO PRN ×2 (00:38→06:46)
[2023-05-25] MEDS: DOCUSATE SODIUM 100 MG CAPSULE PO SCH (09:01)
--- NOTE | 2023-05-25 15:33 | Discharge Plan ---
Discharge Plan Problem Reviewed?: Yes Disposition: Home, Self Care Condition: Good Diet: Regular Activity Restrictions: No Restrictions Shower Restrictions: No Driving Restrictions: No Weight Bearing: Full Weight Instruction Topics: Vaginal After No Smoking: If you smoke, Please STOP! Call for help.
--- NOTE | 2023-05-25 15:48 | DISCHARGE SUMMARY ---
Discharge Summary Condition at Discharge: Good Discharge Disposition: 01 Home, Self Care - HOSPITAL COURSE Hospital Course: Date of Admission: 05/23/2023 Date of Discharge: 05/25/2023 Diagnosis on Admission: 1. 23yo @ 39.3wks gestation by LMP c/w 10.3wks gestation 2. Obesity 3. FHR Category I 4. GBS negative Diagnosis on Discharge: 1. 23yo PPD#1 s/p TSVB viable male on 05/24/2023 2. 3. Normal recovery Brief History: She [facility] a [facility] who presented on 05/23/2023 for induction of labor secondary to obesity and suspected macrosomia. Upon arrival cervix was 1/50/-3, posterior and vertex with intact membranes. Cervical ripening balloon was placed and 1 dose of misoprostol 25mcg was given for effective pre-induction cervical ripening. SROM occurred at 1240 and was noted to be a moderate amount of clear fluid. Pitocin was initiated for induction of labor with a maximum infusion rate of 16mU/mL. She progressed to spontaneously deliver a viable male over intact perineum on 05/24/2023 at 0645. Apgars were 7/8 at 1 and 5 minutes respectively. EBL 250mL. She has been doing well in her course. Yesterday she was slow to regain full sensation in her left leg however it gradually improved and she does not feel any residual effects from epidural anesthesia today. She is ambulating and tolerating a regular diet. She is urinating without difficulty and her lochia is normal. Her pain is well controlled with oral medications. She will be discharged home today on day #1 with instructions to continue taking her vitamin while and to continue taking ibuprofen and tylenol over the counter as needed for pain management. She intends to follow up with myself in 1.5 weeks or sooner if needed. She has been given precautions to call if she has any worsening fevers, chills, abdominal pain, increased vaginal bleeding or foul smelling vaginal lochia. Physical exam: Normocephalic, atraumatic. Heart RRR w/o M/G/R, lungs CTAB, abdomen soft, and nontender with fundus firm at U-2, perineum intact, light lochia rubra, bilateral LE's no edema. - ALLERGIES Allergies/Adverse Reactions: Allergies Allergy/AdvReac Type Severity Reaction Status Date / Time No Known Drug Allergies Allergy Verified 01/08/23 09:15 - MEDICATIONS Home Medications: Ambulatory Orders Medication Instructions Recorded Confirmed Pnv No.95/Ferrous Fum/Folic AC 1 tab ORAL DAILY 07/24/18 11/12/22 [ Tablet] Nitrofurantoin [Macrobid] 100 mg PO BID #10 cap 11/12/22 Ondansetron Odt [Zofran] 4 mg TL Q6H PRN #10 tablet 11/12/22 Acetaminophen [Tylenol] 650 mg PO Q6H PRN #30 tab 01/08/23 Oxymetazoline HCl [Afrin] 15 ml NS Q4HR #15 each 01/08/23 Pseudoephedrine HCl 60 mg PO BID #30 tablet 01/08/23 - LABS Result Diagrams: 05/23/23 10:31
[2023-05-25 17:15] VITALS: BP 122/61
--- NOTE | 2023-05-25 17:19 | Labor Flowsheet ---
Labor Flowsheet Datetime Report Generated by CPN: 05/25/2023 17:19 Datetime: 05/25/2023 07:29 VITAL SIGNS NBP Sys/Carrie/Mean (mmHg): 128 : 74 : 86 Pulse: 73 Datetime: 05/24/2023 12:59 SpO2 (%): 99 Datetime: 05/24/2023 11:13 Stage of : Datetime: 05/24/2023 06:50 MEDICATIONS Pitocin (milliunits): Increased to @ wide open Medication Comments: post bolus per provider request Datetime: 05/24/2023 06:44 Comments: indeterminate. FHR 110-180 while push. RN and provider continuously at bedside monitori ng, good descent with maternal pushing effortsing Datetime: 05/24/2023 06:40 STAGE 2 Pushing: Coached on Pushing Pushing Position: Pushing with Contractions; Pushing Lithotomy Pushing Progress: Descent with Pushing Datetime: 05/24/2023 06:34 LaborFlag: Labor Datetime: 05/24/2023 06:30 UTERINE ACTIVITY Monitor Mode: Internal Frequency (min): 1.5 Duration (sec): 50 Pattern: Tachysystole: > 5 Contractions in 10 Minutes Resting Tone IUP (mmHg): 30 Intensity IUP (mmHg): 50-70 Simla Units (mmHg): 195 ASSESSMENT A Monitor Mode: External US Variability: Moderate 6-25 bpm Accelerations: None Decelerations: None Category: Category I Datetime: 05/24/2023 06:29 COMMUNICATION Communication: Provider at Bedside Provider Notified (Name): A Rolando CNM Datetime: 05/24/2023 06:17 Communication Comments: Pt VE complete Datetime: 05/24/2023 06:15 Contraction Comments: IV fluids, decrease pitocin FHR Baseline Rate : 150 Actions for Decelerations: Provider Notified Datetime: 05/24/2023 06:00 Monitor Interventions for FHR: Ultrasound Adjusted Datetime: 05/24/2023 05:45 Resting Tone (Palpate): Relaxed Datetime: 05/24/2023 05:30 Pitocin Checklist: At Least 1 Acceleration of 15 bpm x 15 Seconds in 30 Minutes or Adequate Variabi lity; No More than 1 Late Deceleration Occurred in Past 30 Minutes; Uterus Palpates Soft between Cont ractions Datetime: 05/24/2023 05:29 Patient Position/Activity: High Fowlers Patient Care Comments: throne positio n Datetime: 05/24/2023 05:27 Cervix, Consistency: Soft Cervix, Position: Anterior Datetime: 05/24/2023 05:23 MATERNAL ASSESSMENT Nausea/Vomiting: Present Datetime: 05/24/2023 05:14 PAIN Pain Scale: 5 Pain Type: Cramping; Contraction Pain Location: Abdomen; Perineum Pain Coping: Talking Through Contractions; Breathing Through Contractions Anesthesia Level Check: T9 Datetime: 05/24/2023 04:59 Temperature (C): 37.2 Datetime: 05/24/2023 04:38 PATIENT CARE IV/Blood Work: IV Bolus Started Datetime: 05/24/2023 04:26 Notification Reason: Status; Labor Status; Uterine Activity; Maternal Vital Sign Change Datetime: 05/24/2023 04:00 Quality: Moderate Datetime: 05/24/2023 03:29 Respirations: 19 Datetime: 05/24/2023 02:39 VAGINAL EXAM Vaginal Bleeding: Normal Show Datetime: 05/24/2023 02:29 I/O Interventions: Joy Cath Inserted Datetime: 05/24/2023 01:53 Anesthesia Comments: no test dose available Datetime: 05/24/2023 01:49 ANESTHESIA Epidural Procedure: Cath Placed Datetime: 05/24/2023 01:38 Provider Reviewed Strip: No Datetime: 05/24/2023 01:37 PROCEDURE TIME OUT Procedure Verify: Correct Patient Identity; Correct Side and Site are Marked; Correct Patient Posit ion Datetime: 05/24/2023 01:33 Pain Presence: Intermittent Datetime: 05/24/2023 01:08 Pain Assessment Comments: Desi Demarcus, EMERGENCY MEDICAL TECHNICIAN BASIC notified of patient request for epidural. Epidural co nsent at bedside. Comfort Measures: Anesthesia Notified Datetime: 05/23/2023 23:15 Temperature Route: Oral Datetime: 05/23/2023 22:44 Monitor Interventions for UA: IUPC Inserted Datetime: 05/23/2023 22:01 FHR Baseline Changes: No Baseline Change
== END 2023-05-25 17:00 | disposition home or self-care (01) | DRG 807 ==
LOC: WFO 09:20 → FBP 09:21 → WFO 10:03 → UNDOADMOB 10:03 → INTOOBSV 10:03 → FBP 10:03 → UNDOADMOB 20:21 → FBP 20:21
PROVIDERS: ADMIT Nurse Practitioner Obstetrics & Gynecology; ATTEND Nurse Practitioner Obstetrics & Gynecology
PROC: 3E033VJ Introduction of Other Hormone into Peripheral Vein, Percutaneous Approach (ICD-10-PCS; 2023-05-23)
PROC: 3E0DXGC Introduction of Other Therapeutic Substance into Mouth and Pharynx, External Approach (ICD-10-PCS; 2023-05-23)
PROC: 0U7C7ZZ Dilation of Cervix, Via Natural or Artificial Opening (ICD-10-PCS; 2023-05-23)
PROC: 10E0XZZ Delivery of Products of Conception, External Approach (ICD-10-PCS; principal; 2023-05-24)
DX: O99.214 Obesity complicating childbirth (principal); Z37.0 Single live birth; Z3A.39 39 weeks gestation of pregnancy
CPT/HCPCS: 36415; 85025; 86850; 86900; 86901; 96365; 96366; A9270; J1200; J7120

== ENCOUNTER 2023-06-02 23:29 | Emergency (ER) | payer MEDICAID ==
[2023-06-03 00:05] LABS: BASOPHILS % (AUTO) 0.4 %; EOSINOPHILS # (AUTO) 0.1 10^3/uL (0.0-0.7); EOSINOPHILS % (AUTO) 0.8 %; HCT - HEMATOCRIT 34.8 % (37.0-47.0); HGB - HEMOGLOBIN 11.4 g/dL (12.0-16.0); LYMPHOCYTES # (AUTO) 3.6 10^3/uL (1.5-3.5); LYMPHOCYTES % (AUTO) 43.1 %; MEAN CORPUSCULAR HEMOGLOBIN 28.6 pg (27.0-31.0); MEAN CORPUSCULAR HGB CONC 32.8 g/dL (32.0-36.0); MEAN CORPUSCULAR VOLUME 87.2 fL (81.0-99.0); MEAN PLATELET VOLUME 10.6 fL (7.9-10.8); MONOCYTES # (AUTO) 0.6 10^3/uL (0.0-1.0); MONOCYTES % (AUTO) 6.8 %; NEUTROPHILS # (AUTO) 4.1 10^3/uL (1.5-6.6); NEUTROPHILS % (AUTO) 48.8 %; PLT - PLATELET COUNT 259 10^3/uL (130-450); RED BLOOD COUNT 3.99 10^6/uL (4.20-5.40); RED CELL DISTRIBUTION WIDTH 12.7 % (12.0-15.0); WHITE BLOOD COUNT 8.4 x10^3/uL (4.8-10.8)
[2023-06-03 00:17] LABS: ALBUMIN 3.7 g/dL (3.2-5.5); BILIRUBIN,TOTAL 0.3 mg/dL (0.2-1.0); CALCIUM 9.7 mg/dL (8.5-10.3); CREATININE 0.6 mg/dL (0.6-1.3); POTASSIUM 3.9 mmol/L (3.5-4.5); TOTAL PROTEIN 7.3 g/dL (6.4-8.9)
--- NOTE | 2023-06-03 00:38 | ED Physician Documentation ---
PD HPI FEMALE - Stated complaint Stated Complaint: FEMALE - Chief complaint Chief Complaint: Abd Pain - History obtained from History obtained from: Patient - Additional information Additional information: HPI from patient. Patient c/o vaginal bleeding, sudden onset at approximately 10 PM tonight while at home washing dishes when she "felt a big gush" (per patient), associated with mild suprapubic cramping and some clotted blood. Patient is having just given 05/24/23, vaginal delivery at 39.3 weeks gestation. Review of Systems Cardiac: reports: Reviewed and negative Respiratory: reports: Reviewed and negative GI: denies: Abdominal Pain (mild suprapubic/pelvic cramping), Abdominal Swel ling, Nausea, Vomiting PD PAST MEDICAL HISTORY - Past Medical History Cardiovascular: None Respiratory: None Neuro: None Endocrine/Autoimmune: None GI: None AUTOMOTIVE GENERAL MANAGER: None : None HEENT: None Psych: None Musculoskeletal: None - Past Surgical History Past Surgical History: No - Present Medications Home Medications: Ambulatory Orders Medication Instructions Recorded Confirmed Pnv No.95/Ferrous Fum/Folic AC 1 tab ORAL DAILY 07/24/18 11/12/22 [ Tablet] Nitrofurantoin [Macrobid] 100 mg PO BID #10 cap 11/12/22 Ondansetron Odt [Zofran] 4 mg TL Q6H PRN #10 tablet 11/12/22 Acetaminophen [Tylenol] 650 mg PO Q6H PRN #30 tab 01/08/23 Oxymetazoline HCl [Afrin] 15 ml NS Q4HR #15 each 01/08/23 Pseudoephedrine HCl 60 mg PO BID #30 tablet 01/08/23 - Allergies Allergies/Adverse Reactions: Allergies Allergy/AdvReac Type Severity Reaction Status Date / Time No Known Drug Allergies Allergy Verified 06/02/23 23:31 - Social History Does the pt smoke?: No Smoking Status: Never smoker Does the pt drink ETOH?: No Does the pt have substance abuse?: No - Immunizations Immunizations are current?: Yes PD ED PE NORMAL - Vitals Vital signs reviewed: Yes - General General: Alert and oriented X 3, No acute distress, Well developed/nourished - Cardiac Cardiac: RRR, No murmur - Respiratory Respiratory: No respiratory distress, Clear bilaterally - Abdomen Abdomen: Normal bowel sounds, Soft, Non tender, Non distended - Back Back: No CVA TTP PD ED PE EXPANDED - Female Female : Normal external, Vaginal Bleeding (scant dark blood in posterior vagina. small clots removed from region of cervix and there was no subsequent further bleeding. ), Policy Intern present (ALEJANDRO Giles) Results - Vitals Vitals: Oxygen O2 Source Room air - Labs Labs: Laboratory Tests 06/02/23 06/02/23 06/02/23 23:58 23:58 23:58 WBC 8.4 RBC 3.99 L Hgb 11.4 L Hct 34.8 L MCV 87.2 MCH 28.6 MCHC 32.8 RDW 12.7 Plt Count 259 MPV 10.6 Neut # (Auto) 4.1 Lymph # (Auto) 3.6 H [place] # (Auto) 0.6 Eos # (Auto) 0.1 Baso # (Auto) 0.0 Absolute Nucleated RBC 0.00 Nucleated RBC % 0.0 Sodium 136 Potassium 3.9 Chloride 105 Carbon Dioxide 26 Anion Gap 5.0 L BUN 17 Creatinine 0.6 Estimated GFR (MDRD) 123 Glucose 97 Calcium 9.7 Total Bilirubin 0.3 AST 21 ALT 23 Alkaline Phosphatase 80 Total Protein 7.3 Albumin 3.7 Globulin 3.6 Albumin/Globulin Ratio 1.0 Lipase 24 Blood Type O POSITIVE PD Medical Decision Making - ED course Complexity details: reviewed results, re-evaluated patient, considered differential, d/w patient ED course: Tests ordered and results reviewed by me: CBC, ER abdominal panel. Normal ER abdominal panel. Mildly low h/h (hgb 11.4, higher than most recent (was 11.0 on 05/23/23)). Trace blood and clots on pelvic exam without active bleeding. D/W Dr. Kelly (collection advisor hardware assembler), who would prefer US (to ensure no retained pr oducts such as placenta, though unlikely). Given that US is not available, and patient is stable , both clinically as well as by h/h, can plan to seek expedited f/u as soon as hardware assembler offices open for reevaluation or else return to the ED if worse /recurrent bleeding. Towards the end of this conversation, I then noted that patient's delivery was performed by Viri Marshall; Dr. Kelly recommends I contact Viri Marshall to discuss this case. Unfortunately, the number I was provided by my [facility] for Viri Rolando went to . Again, given patient's stability, I feel comfortable with d/c home without further testing (or holding patient for AM US, which would be a few more hours before they are in house). I discussed this with patient and she is comfortable with d/c home, return precautions carefully reviewed, and she will contact her manager cost to arrange for reevaluation. Departure - Departure Disposition: Home, Self Care Clinical Impression: Vaginal bleeding Condition: Good Instructions: ED Bleed Irregular Vaginal Follow-Up: Viri Marshall, SHIVANI, RELIGIOUS LEADER [Provider Admit Priv/Credential] - Comments: There were no concerning finding on tonight's blood tests; your red blood cell levels are slightly higher than they were on the most recent values I have available in my computer (from May 23). Contact your RIGGER SUPERVISOR or manager cost's office when they open this morning to arrange for next available appointment for reevaluation. Forms: PCP List Discharge Date/Time: 06/03/23 04:15
[2023-06-03 03:11] VITALS: O2SAT 99
[2023-06-03 04:20] VITALS: BP 106/78
== END 2023-06-03 04:15 | disposition home or self-care (01) ==
LOC: ED 23:29
DX: O72.1 Other immediate postpartum hemorrhage (principal)
CPT/HCPCS: 36415; 80053; 83690; 85025; 86900; 86901; 99283